=== PATIENT | female | born 1990 | race Two or more races ===

== ENCOUNTER 2024-09-14 19:29 | Emergency (ER) | payer OTHER ==
[~2024-09-14] VITALS: Ht 162.6 cm; Wt 97.5 kg
[~2024-09-14 19:29] MED LIST: GAS RELIEF125 M1 PO; KETO10TA2 PO
[2024-09-14 22:06] LABS: HEMOGLOBIN 11.5 g/dL (12.0-15.00); MEAN CELL VOLUME 80.2 fL (80.00-100.00); MEAN CORPUSCULAR HEMOGLOBIN 26.4 pg (27.00-32.0); MEAN CORPUSCULAR HGB CONC 32.9 g/dl (32.0-36.0); PLATELET COUNT 185 K/uL (150-450); RED BLOOD COUNT 4.37 M/uL (4.00-6.00); RED CELL DISTRIBUTION WIDTH 14.6 % (11.5-14.5)
[2024-09-14 22:28] LABS: ALBUMIN 3.1 gm/dL (3.4-5.0); BILIRUBIN TOTAL 0.17 mg/dL (0.3-1.2); CALCIUM 8.6 mg/dL (8.5-10.1); CREATININE SERUM 0.48 mg/dL (0.55-1.02); GFR 150.85; GLOBULINA 3.4 G/DL (2.4-3.5); POTASSIUM 3.35 mEq/L (3.5-5.1); TOTAL PROTEIN 6.5 gm/dL (6.4-8.2)
== END 2024-09-14 22:54 | disposition home or self-care (01) ==
LOC: ER 19:30
DX: R10.32 Left lower quadrant pain (principal); Z88.8 Allergy status to other drugs, medicaments and biological substances